=== PATIENT | male | born 1935 | race Caucasian/White ===

== ENCOUNTER 2017-07-01 07:42 | Emergency (ER) | payer OTHER ==
[2017-07-01 07:55] VITALS: TEMP 97.9; BMI 28.3
--- NOTE | 2017-07-01 08:01 | ED.PDOC ---
General ED Provider: Dr. YENIFER MURO Chief Complaint: Chest Pain Stated Complaint: My chest feels different, having chest palpitaions. Took morning meds around 6:00 AM. Stated discomfort localized mid -to Rt side of chest and denies referral to Neck, shoulder or abdomen. Denies Dyspnea, Dizziness or other discomfort. Time Seen by Physician: 07:45 Mode of Arrival: Walk-In Information Source: Patient, Family Exam Limitations: No limitations Primary Care Provider: YUNG STEWART Referred to ED by: Other (Self) Nursing and Triage Documentation Reviewed and Agree: Yes Reviewed sepsis parameters & appropriate labs ordered?: Yes System Inflammatory Response Syndrome: Not Applicable Sepsis Protocol: For patient's 13 years and over: Temp is 96.8 and below OR 101 and greater Pulse >90 BPM Resp >20/minute Acutely Altered Mental Status Are patient's symptoms suggestive of a new infection, such as: -Pneumonia -Skin, Soft Tissue -Endocarditis -UTI -Bone, Joint Infection -Implantable Device -Acute Abdominal Infection -Wound Infection -Meningitis -Blood Stream Catheter Infection -Unknown System Inflammatory Response Syndrome: Not Applicable Cardiovascular Complaint Exam - Chest Pain Complaint/Exam Onset: Sudden Symptoms Are: Still present Timing: Constant Initial Severity: Moderate Current Severity: Mild (10/22) Location: Reports: Midsternal, Right anterior Pain Radiates: Reports: None Character: Reports: Dull, Aching, Pressure Aggravating: Reports: None Alleviating: Reports: None Associated Signs and Symptoms: Reports: Palpitations. Denies: Diaphoresis, Nausea, Vomiting, Fever, Cough, Hemoptysis, Back pain, Abdominal pain, Dizziness , Short of air, Calf pain, Calf swelling Related History: Reports: Current Beta Ryan, Current Ca Rodriguez.Ryan. Denies : Similar episode Related Surgical History: Reports: Cardiac Cath. Denies: PTCA/Stent, CABG, Pacemaker History of Healthcare-Acquired Pneumonia: Reports: No AMI/ACS Risk Factors: Reports: Diabetes, Hypertension TAD Risk Factors: Reports: Hypertension Prior Care for this Complaint: Yes Recent Stress Test: No Recent Echo/LV Function: No JVD Present: No Subcutaneous Emphysema Present: No Diminshed Breath Sounds: No Reproducible Chest Wall Pain: No Bilateral Pulses Present: Yes Unequal Pulses Noted: No If Risk Factors for AMI/ACS Consider: EKG, Cardiac Enzymes Documents Reviewed: Labs, Imaging Software Support Representative Consulted: No Differential Diagnoses: ACS, Chest Wall Pain, Pulmonary Embolism, Other ( arrhythmia;) Quality Indicators For Acute CA or Cardiac Chest Pain: EKG in 10min. Review of Systems - Review Of Systems Constitutional: Reports: No symptoms Eyes: Reports: No symptoms Ears, Nose, Mouth, Throat: Reports: No symptoms Respiratory: Reports: No symptoms Cardiac: Reports: Chest pain, Palpitations GI: Reports: No symptoms : Reports: No symptoms Musculoskeletal: Reports: No symptoms Skin: Reports: No symptoms Neurological: Reports: No symptoms Endocrine: Reports: No symptoms Hematologic/Lymphatic: Reports: No symptoms All Other Systems: Reviewed and Negative Past Medical History - Past Medical History Previously Healthy: No Endocrine: Reports: None Cardiovascular: Reports: Hypertension, A-Fib, Other (Renal artery disease) Respiratory: Reports: None 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) Gastrointestinal: Reports: None Genitourinary: Reports: Other (Past Prostate Ca; Renal artery stenosis-prev recommended for stent placement) Neuro/Psych: Reports: None Musculoskeletal: Reports: None, Unknown 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; prostate Ca) - Surgical History General Surgical History: Reports: None - Family History Family History: Reports: None - Social History Smoking Status: Former smoker Hx Substance Use: No Physical Exam - Physical Exam Appearance: Well-appearing, No pain distress, Well-nourished Ill-appearing: None Pain Distress: None Eyes: RYAN, EOMI, Conjunctiva clear ENT: Ears normal, Nose normal, Oropharynx normal Respiratory: Airway patent, Breath sounds clear, Breath sounds equal, Respirations nonlabored Cardiovascular: Pulses normal, No rub, No murmur, Irregular rhythm GI/: Soft, Nontender, No masses, Bowel sounds normal, No Organomegaly Musculoskeletal: Normal strength, ROM intact, No edema, No calf tenderness Skin: Warm, Dry, Normal color Neurological: Sensation intact, Motor intact, Reflexes intact, Cranial nerves intact, Alert, Oriented Psychiatric: Affect appropriate, Mood appropriate Critical Care Note - Critical Care Note Total Time (mins): 30 Course - Course Hematology/Chemistry: 07/01/17 08:00 07/01/17 08:00 Orders, Labs, Meds: Lab Review 07/01/17 07/01/17 07/01/17 08:00 08:00 08:00 WBC 6.73 RBC 4.94 Hgb 14.1 Hct 42.6 MCV 86.2 MCH 28.5 MCHC 33.1 RDW Coeff of Maria 13.9 Plt Count 207 Immature Gran % (Auto) 0.3 Neut % (Auto) 65.6 Lymph % (Auto) 17.7 Bremer % (Auto) 10.1 H Eos % (Auto) 5.3 Baso % (Auto) 1.0 Immature Gran # (Auto) 0.0 Neut # (Auto) 4.4 Lymph # (Auto) 1.2 Bremer # (Auto) 0.7 Eos # (Auto) 0.4 Baso # (Auto) 0.1 PT INR APTT D-Dimer (Manual) 473.79 Sodium 138 Potassium 4.2 Chloride 102 Carbon Dioxide 26 Anion Gap 14.2 BUN 13 Creatinine 0.93 Estimated GFR (MDRD) 78.00 BUN/Creatinine Ratio 13.97 Glucose 216 H Calcium 9.5 Total Bilirubin 0.6 AST 15 ALT 16 Alkaline Phosphatase 72 Troponin I < 0.0100 Total Protein 7.1 Albumin 3.7 Globulin 3.4 Albumin/Globulin Ratio 1.09 Digoxin 07/01/17 07/01/17 08:00 08:00 WBC RBC Hgb Hct MCV MCH MCHC RDW Coeff of Maria Plt Count Immature Gran % (Auto) Neut % (Auto) Lymph % (Auto) Bremer % (Auto) Eos % (Auto) Baso % (Auto) Immature Gran # (Auto) Neut # (Auto) Lymph # (Auto) Bremer # (Auto) Eos # (Auto) Baso # (Auto) PT 38.5 H INR 4.01 H* APTT 38.6 D-Dimer (Manual) Sodium Potassium Chloride Carbon Dioxide Anion Gap BUN Creatinine Estimated GFR (MDRD) BUN/Creatinine Ratio Glucose Calcium Total Bilirubin AST ALT Alkaline Phosphatase Troponin I Total Protein Albumin Globulin Albumin/Globulin Ratio Digoxin 1.48 Orders Category Date Time Status EKG-(ED ONLY) Stat CARDIO 07/01/17 07:45 Completed IV [ED IV/MEDIPORT/POWERPORT] .ONCE EMERGENCY 07/01/17 07:45 Active CBC W/ AUTO DIFF Stat LAB 07/01/17 08:00 Completed CMP [COMPREHENSIVE METABOLIC PANEL] Stat LAB 07/01/17 08:00 Completed D-DIMER Stat LAB 07/01/17 08:00 Completed DIGOXIN Stat LAB 07/01/17 08:00 Completed PT WITH INR Stat LAB 07/01/17 08:00 Completed PTT [PARTIAL THROMBOPLASTIN TIME] Stat LAB 07/01/17 08:00 Completed TROPONIN I Stat LAB 07/01/17 08:00 Completed 0.9 % Sodium Chloride [Saline Flush] MEDS 07/01/17 07:45 Active 1 syr IVF PRN PRN CHEST, 1V AP ONLY Stat RADS 07/01/17 07:45 Completed Medications Generic Name Dose Route Start Last Admin Trade Name Freq PRN Reason Stop Dose Admin Sodium Chloride 1 syr 07/01/17 07:45 Saline Flush IVF PRN PRN To flush IV Vital Signs: Temp Pulse Resp BP Pulse Ox 07/01/17 08:38 69 16 176/86 H 07/01/17 07:43 97.9 F 89 18 203/114 H 98 AMI Core - Clinical Trial Participant Clinical Trial Participant: No - EKG Initial Interpretation EKG Initial Interpretation Date: 07/01/17 (Atrial fib ; LAFB; NS-ST changes) ERIKA Risk Score ERIKA Risk Score: Risk Score Odds of by 30D 0 0.1 (0.1-0.2) 1 0.3 (0.2-0.3) 2 0.4 (0.3-0.5) 3 0.7 (0.6-0.9) 4 1.2 (1.0-1.5) 5 2.2 (1.9-2.6) 6 3.0 (2.5-3.6) 7 4.8 (3.8-6.1) Departure - Departure Time of Disposition: 09:50 Disposition: TSF SHORT-TRM HOSP Discharge Problem: Chest pain, Chest pain, Atrial fibrillation, Uncontrolled hypertension, History of renal artery stenosis Instructions: Chest Pain (ED), Chronic Hypertension (ED), Hypertension in the Older Adult (ED) Condition: Good Pt referred to PMD for follow-up: Yes (Dr Stewart-discussed with PCP who agrees to accept in transfer) IPMP verified?: No Allergies/Adverse Reactions: Allergies No Known Allergies Allergy (Unverified 07/01/17 07:54) Home Medications: Ambulatory Orders Cinnamon Bark [Cinnamon] 1,000 mg PO DAILY 07/01/17 Digoxin 250 mcg PO DAILY 07/01/17 Diltiazem HCl [Cardizem Cd] 240 mg PO DAILY 04/19/18 Lisinopril/Hydrochlorothiazide [Zestoretic 20-12.5 mg Tab] 1 tab PO DAILY Metformin HCl 850 mg PO BID 07/01/17 Metoprolol Tartrate 50 mg PO DAILY 07/01/17 Omeprazole 20 mg PO DAILY 07/01/17 Sitagliptin Phosphate [Januvia] 100 mg PO DAILY 07/01/17 Warfarin Sodium 3 mg PO DIRECTED 07/01/17 Additional Comments Additional Comments: Reviewed diagnostic studies with patient and his family( and daughter). Recommeded transfer to [facility] where His PCP practices for admission and observation/further evaluation as required. Agreed. Called and spoke with Dr Stewart who accepts patient. Nursing make arrangment admissiion through call center. Transferred by [facility]
[2017-07-01 08:39] VITALS: BP 176/86
--- NOTE | 2017-07-01 09:18 | DI ---
EXAM: Chest one view HISTORY: Chest pain COMPARISON: None TECHNIQUE: Single view of the chest was performed FINDINGS: The lungs are clear. There is no pleural effusion or pneumothorax. The heart is normal i n size. The mediastinal contour is normal, noting atherosclerosis. There are no acute abnormalities of the bones. IMPRESSION: No acute cardiopulmonary process.
== END 2017-07-01 11:30 | disposition short-term general hospital (02) ==
LOC: ED 07:42
DX: R07.9 Chest pain, unspecified (principal); I48.91 Unspecified atrial fibrillation; I10 Essential (primary) hypertension; I70.1 Atherosclerosis of renal artery; E11.9 Type 2 diabetes mellitus without complications; Z85.46 Personal history of malignant neoplasm of prostate; Z85.821 Personal history of Merkel cell carcinoma; Z79.01 Long term (current) use of anticoagulants; Z79.899 Other long term (current) drug therapy
CPT/HCPCS: 36415; 80053; 80162; 84484; 85025; 85379; 85610; 85730; 93005; 93010; 99285

== ENCOUNTER 2017-08-12 08:24 | Outpatient (RCR) ==
--- NOTE | 2017-08-12 16:53 | RS.OPPTEV2 ---
Date of Note: 08/12/17 Visit #: 1 Date of Evaluation: 08/12/17 Payer Source: MEDICARE Surgery Performed?: Yes (CABG) Procedure Performed: CABG Date of Procedure: 06/29/17 Treatment Diagnosis: L shld pain History of Condition/Mechanism of Injury:: pt reports he has had pain in L scapula since CABG on 06/29/17. States pain is limiting ability to walk and perform cardiac rehab activities as ordered by MD. Prior Level of Function.....Patient was independent with: ADL's, Self Care, Ambulation/Mobility, Community Integration/Access Functional Limitations: Sleep, Lifting, Ambulation, Community Access/Integration Current Subjective/complaints:: pt reports pain comes and goes. States notices increased pain with walking and being up very long. pt reports is returning to cardiac surgeon next week and will be starting cardiac rehab soon. Hoping to decrease scapular pain prior to beginning cardiac rehab. Treatment Side (optional): Left *Precautions: no lifting due to CABG Medical History Medical History: Hypertension, Diabetes, Arthritis, Cancer (prostate and bret cell) Surgical History: CABG Smoking Status: Current some day smoker Hx Home Medications: diltazem, metoprolol tartrate, digoxin, warfarin, lisinopril with HCTZ, januvia, metformin, omeprazole, cinnamon, Patient's Goals: decrease scapular pain Pain Assessment - Pain Description Pain Location: L medial border of scapula Pain Description: Sharp Current Pain Intensity: 10 Worst Pain Intensity: 10 Other Comments regarding Pain:: pain increases with activity Functional Outcome Measure UE Functional Index: 18 (77%) - G Codes & Severity Modifier G Codes & Modifier: carrying, moving and handling current CL. carrying, moving and handling goal CJ Source of G Code score: UE functional index Observation - Observation Posture: Forward Head, Rounded Shoulders, Increased Thoracic Kyphosis, Decreased Lumbar Lordosis Handedness: Right Gait - Gait Pattern General Gait Pattern Observation: No Deviations/Normal General Range of Motion: BLE WFL's. RUE WFL's Muscle Strength: BLE 5/5. RUE not MMT due to CABG atleast 3/5 as noted by ROM Shoulder ROM: Right WFL's - Left Shoulder ROM Left Shoulder Flexion: 164 Left Shoulder Abduction: 160 Left Shoulder External Rotation: 55 Left Shoulder ROM Limitations: Muscle Weakness, Pain Comments: ROM WFL's with pain, decreased scapular motion with shld movement - Special Tests Shoulder Empty Can (Supraspinatus) Test: Positive Left Palpation Palpation Findings: Trigger Point Comments:: pt presents with trigger point and muscle guarding in medial border of L scapula. Sensation - Sensation Right Upper Extremity: Intact/Normal Left Upper Extremity: Intact/Normal Right Lower Extremity: Intact/Normal Left Lower Extremity: Intact/Normal Balance - Sitting Balance Static Sitting Balance: Normal Dynamic Sitting Balance: Normal - Standing Balance Static Standing Balance: Normal Dynamic Standing Balance: Normal - Heat/Cryotherapy Treatment: Cryotherapy (L scapula/shld) Interventions - Exercise/Activities/Manual Therapy Exercises/Activities: pt performed scapular retraction, shld shrugs, modified wall angels, shld horizontal add stretch. Manual Therapy: trigger point release to L medial border of scapula HOME EXERCISE PROGRAM: pt given written HEP including shld horizontal add stretch, scapular retraction without resistance, shld shrugs, modified wall angels. - Charges Timed Code Treatment Minutes: 51 Total Treatment Time: 60 Procedures billed for this date of service:: eval med, cold pack EVALUATION COMPLEXITY LEVEL EVALUATION COMPLEXITY LEVEL: HISTORY: Medium (CABG, DM, CA, pain), EXAM OF BODY SYSTEMS: Medium (pain, ROM, strength, posture), CLINICAL PRESENTATION: Medium ( evolving), CLINICAL DECISION MAKING: Medium Assessment Assessment: pt presents with pain L medial scapula, trigger points and muscle guarding present. pt with increased thoracic kyphosis, pt with decreased strength. 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 Goal #1: report ability to perform daily activities/amb for ex w/o increased pain Goal to be met by: 09/09/17 Goal #2: pt perform ROM WFL's without increased pain Goal to be met by: 09/09/17 Goal #3: pt independent with HEP to maintain gains after dc Goal to be met by: 09/09/17 Plan - Treatment to be Provided Procedures: Therapeutic Exercises, Therapeutic Activity, Manual Therapy, Massage , Patient Education Modalities: Cryotherapy, Hot Packs - Treatment Plan Frequency: 2-3x a week Duration: 4 weeks ORDER # VISITS AND/OR THROUGH DATE: 09/09/17 - Treatment Code (1) Pain of left scapula Code(s): M89.8X1 - OTHER SPECIFIED DISORDERS OF BONE, SHOULDER (2) Muscle tightness Code(s): M62.89 - OTHER SPECIFIED DISORDERS OF MUSCLE (3) Muscle weakness Code(s): M62.81 - MUSCLE WEAKNESS (GENERALIZED)
== END 2017-08-12 23:59 ==
PROVIDERS: ATTEND Family Medicine
DX: M25.512 Pain in left shoulder (principal)

== ENCOUNTER 2017-08-20 09:00 | Outpatient (RCR) ==
--- NOTE | 2017-08-16 09:42 | RS.OPPTDN ---
Subjective Date of Note: 08/16/17 Visit #: 2 Date of Evaluation: 08/12/17 Payer Source: MEDICARE Treatment Diagnosis: L shld pain Current Subjective/complaints:: Patient reports his niece did some manual therapy on his left shoulder area which seems to have helped, and he feels we are on the right track to relieving his problem. States he will see his cardiac surgeon tomorrow and should be starting cardiac rehab next week. Reports reduction in left shoulder/scapular pain following treatment. *Precautions: no lifting due to CABG Pain Assessment - Pain Description Pain Location: Left mid scapular musculature Current Pain Intensity: mild to mod - Heat/Cryotherapy Treatment: Hot Pack ([id number] to the left shoulder and scapula prior to MT. Patient in sitting. ) Interventions - Exercise/Activities/Manual Therapy Exercises/Activities: pt performed scapular retraction and shld shrugs. Assisted mid scap stretch with UE across body/shld horizontal add stretch. Total minutes of Exercise: 3mins Manual Therapy: Myofascial and soft tissue massage to the left scapular region. Trigger point release to the left medial scap border. Ended with soft tissue massage to bilateral upper traps. Patient in sitting. Total minutes of Manual Therapy: 24mins HOME EXERCISE PROGRAM: pt given written HEP including shld horizontal add stretch, scapular retraction without resistance, shld shrugs, modified wall angels. - Objective Findings Observations,measurements,etc.: Patient with increase muscle tone along the left med scap border, reduced muscle spasms and latent trigger points. - Charges Timed Code Treatment Minutes: 27mins Total Treatment Time: 47mins Procedures billed for this date of service:: HP, MT2 Assessment: Patient reponding well to manual therapy with report of reduction in pain and muscle tension. Patient motivated to progress with return to cardiac rehab. Patient Education: Body/Joint mechanics, Home Exercise Program, Activity Modification Patient demonstrates compliance with HEP?: Yes Short Term Goals Goal #1: pt rate pain < 8 with activity Goal to be met by: 08/26/17 Progress towards Goal:: Progressing Goal #2: pt able to perform L shld ROM with decreased pain Goal to be met by: 08/26/17 Progress towards Goal:: Progressing Goal #3: pt independent with intial HEP Progress towards Goal:: Progressing Snf Goals Goal #1: report ability to perform daily activities/amb for ex w/o increased pain Goal to be met by: 09/09/17 Goal #2: pt perform ROM WFL's without increased pain Goal to be met by: 09/09/17 Goal #3: pt independent with HEP to maintain gains after dc Goal to be met by: 09/09/17 Plan PLAN OF CARE EXPIRES ON:: 09/09/17 ORDER # VISITS AND/OR THROUGH DATE: 09/09/17 PLAN: Continue manual therapy to reduce pain and muscle tension to increase patients functional activity level.
--- NOTE | 2017-08-18 12:00 | RS.OPPTDN ---
Subjective Date of Note: 08/18/17 Visit #: 3 Date of Evaluation: 08/12/17 Payer Source: MEDICARE Treatment Diagnosis: L shld pain Current Subjective/complaints:: Patient reports last treatment helped reduce pain. States he is working on basic stretches. *Precautions: no lifting due to CABG Pain Assessment - Pain Description Pain Location: Left mid scapula Pain Description: Tightness Current Pain Intensity: mild - Heat/Cryotherapy Treatment: Hot Pack ([id number] to the left shoulder and scapular region. Patient in sitting. ) Interventions - Exercise/Activities/Manual Therapy Exercises/Activities: pt performed scapular retraction and shld shrugs. Assisted mid scap stretch with UE across body/shld horizontal add stretch. Total minutes of Exercise: 2mins Manual Therapy: Myofascial and soft tissue massage to the left scapular region. Trigger point release to the left medial scap border. Ended with soft tissue massage to bilateral upper and mid traps. Patient in sitting. Total minutes of Manual Therapy: 27mins HOME EXERCISE PROGRAM: pt given written HEP including shld horizontal add stretch, scapular retraction without resistance, shld shrugs, modified wall angels. - Objective Findings Observations,measurements,etc.: Left mid scap muslce tone reduced today. - Charges Timed Code Treatment Minutes: 29mins Total Treatment Time: 49mins Procedures billed for this date of service:: HP, MT2 Assessment: Patinet responding to treatment with reports of pain reduction and decrease in left mid scap muscle spasm. 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
--- NOTE | 2017-08-20 16:20 | RS.OPPTDN ---
Subjective Date of Note: 08/20/17 Visit #: 4 Date of Evaluation: 08/12/17 Payer Source: MEDICARE Treatment Diagnosis: L shld pain Current Subjective/complaints:: Patient reports manual therapy is helping his pain level. He does report some increase in discomfort after increasing his activity yesterday. Reports he is working on HEP. *Precautions: no lifting due to CABG Pain Assessment - Pain Description Pain Location: left medial scapular border Pain Description: Tightness, Aching Current Pain Intensity: mild to mod - Heat/Cryotherapy Treatment: Hot Pack ([id number] to the left shoulder and scap prior to MT. Patient in sitting. ) Interventions - Exercise/Activities/Manual Therapy Exercises/Activities: pt performed scapular retraction and shld shrugs. Assisted mid scap stretch with UE across body/shld horizontal add stretch. Began red theraband for scap retraction, 2s/10reps. Also, isometric cervical retraction. Patient given copy of new exercises. Total minutes of Exercise: 10mins Manual Therapy: Myofascial and soft tissue massage to the left scapular region. Trigger point release to the left medial scap border. Soft tissue massage to bilateral upper and mid traps. Patient in sitting. Total minutes of Manual Therapy: 29mins HOME EXERCISE PROGRAM: pt given written HEP including shld horizontal add stretch, scapular retraction without resistance, shld shrugs, modified wall angels. - Charges Timed Code Treatment Minutes: 39mins Total Treatment Time: 54mins Procedures billed for this date of service:: HP, MTx2, EX Assessment: Patient reporting improvement in pain and increasing daily activities. 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
--- NOTE | 2017-08-24 11:28 | RS.OPPTDC ---
Date of Discharge: 08/20/17 Date of Evaluation: 08/12/17 Number of Visits: 4 Treatment Diagnosis: L shld pain Current Level of Function: pt with Muscle tone decreased to min L med scapular border, L shld flex WFL's. pt is independent with HEP. pt has met 2/3 STG's. Current Complaints/Gains: pt reports significant improvement in L scapular pain and muscle spasm. States he has returned to work partial days and increased light ADL's at home. Working on HEP. pt decided he is doing well and would like to stop PT and begin cardiac rehab this week. Functional Outcome Measure UE Functional Index: 36 - G Codes & Severity Modifier G Codes & Modifier: carrying moving and handling objects goal CJ. carrying moving and handling objects dc CK Source of G Code score: based on discussion of function/ADL's Observation - Observation Posture: Forward Head, Rounded Shoulders Handedness: Right Gait - Gait Pattern General Gait Pattern Observation: No Deviations/Normal General Range of Motion: WFL's Muscle Strength: Improved from eval to be able to perform light ADL's Interventions - Exercise/Activities/Manual Therapy Exercises/Activities: n/a Manual Therapy: n/a HOME EXERCISE PROGRAM: pt given written HEP including shld horizontal add stretch, scapular retraction without resistance, shld shrugs, modified wall angels. - Charges Timed Code Treatment Minutes: n/a Total Treatment Time: n/a Procedures billed for this date of service:: n/a Assessment Assessment: pt has met 2/3 STG's , pt progressing toward remaining goals. pt chooses to stop PT and begin cardiac rehab. Patient Education: Home Exercise Program, Education of Plan of Care Rehab Potential: Good Short Term Goals Goal #1: pt rate pain < 8 with activity Goal to be met by: 08/26/17 Progress towards Goal:: Met Goal #2: pt able to perform L shld ROM with decreased pain Goal to be met by: 08/26/17 Progress towards Goal:: Partially Met Goal #3: pt independent with intial HEP Progress towards Goal:: Met Custodial Goals Goal #1: report ability to perform daily activities/amb for ex w/o increased pain Goal to be met by: 09/09/17 Progress towards goal: Progressing Goal #2: pt perform ROM WFL's without increased pain Goal to be met by: 09/09/17 Progress towards goal: Progressing Goal #3: pt independent with HEP to maintain gains after dc Goal to be met by: 09/09/17 Plan Reason for Discharge:: Self-Discharge
[2017-08-26 15:20] VITALS: BMI 24.6
== END 2017-09-11 23:59 ==
PROVIDERS: ATTEND Family Medicine
DX: M25.512 Pain in left shoulder (principal); M89.8X1 Other specified disorders of bone, shoulder; M62.89 Other specified disorders of muscle; M62.81 Muscle weakness (generalized)

== ENCOUNTER 2017-08-26 13:54 | Outpatient (RCR) ==
[2017-08-26 15:20] VITALS: TEMP 98.1; BMI 24.6
[2017-09-10 10:53] VITALS: BP 118/54
== END 2017-09-11 23:59 ==
LOC: CAR.REHAB 13:54
PROVIDERS: ATTEND Nurse Practitioner Acute Care
DX: I25.119 Atherosclerotic heart disease of native coronary artery with unspecified angina pectoris (principal)
CPT/HCPCS: 93798

== ENCOUNTER 2017-09-13 06:55 | Outpatient (RCR) ==
[2017-10-11 11:14] VITALS: BP 116/54
== END 2017-10-12 23:59 ==
LOC: CAR.REHAB 06:55
PROVIDERS: ATTEND Nurse Practitioner Acute Care
DX: I25.119 Atherosclerotic heart disease of native coronary artery with unspecified angina pectoris (principal)
CPT/HCPCS: 93798

== ENCOUNTER 2017-10-13 06:43 | Outpatient (RCR) ==
[2017-11-10 10:44] VITALS: BP 118/56
== END 2017-11-12 23:59 ==
LOC: CAR.REHAB 06:43
PROVIDERS: ATTEND Nurse Practitioner Acute Care
DX: I25.119 Atherosclerotic heart disease of native coronary artery with unspecified angina pectoris (principal)
CPT/HCPCS: 93798

== ENCOUNTER 2017-11-16 07:50 | Outpatient (RCR) | payer OTHER ==
[2017-12-10 09:00] VITALS: BP 132/58
== END 2017-12-12 23:59 ==
LOC: CAR.REHAB 07:50
PROVIDERS: ATTEND Nurse Practitioner Acute Care
DX: I25.119 Atherosclerotic heart disease of native coronary artery with unspecified angina pectoris (principal)
CPT/HCPCS: 93798

== ENCOUNTER 2017-12-13 06:47 | Outpatient (RCR) ==
[2018-01-11 10:11] VITALS: BP 118/58
== END 2018-01-12 23:59 ==
LOC: CAR.REHAB 06:47
PROVIDERS: ATTEND Nurse Practitioner Acute Care
DX: I25.119 Atherosclerotic heart disease of native coronary artery with unspecified angina pectoris (principal)
CPT/HCPCS: 93798

== ENCOUNTER 2018-02-14 06:50 | Outpatient (RCR) ==
[2018-03-11 08:46] VITALS: BP 110/54
== END 2018-03-14 23:59 ==
LOC: CAR.REHAB 06:50
PROVIDERS: ATTEND Nurse Practitioner Acute Care
DX: I25.119 Atherosclerotic heart disease of native coronary artery with unspecified angina pectoris (principal)
CPT/HCPCS: 93798

== ENCOUNTER 2018-03-16 06:38 | Outpatient (RCR) ==
[2018-03-21 08:57] VITALS: BP 116/60
== END 2018-03-21 12:30 | disposition home or self-care (01) ==
LOC: CAR.REHAB 06:38
PROVIDERS: ATTEND Nurse Practitioner Acute Care
DX: I25.119 Atherosclerotic heart disease of native coronary artery with unspecified angina pectoris (principal)
CPT/HCPCS: 93798

== ENCOUNTER 2018-04-02 04:22 | Outpatient (CLI) | END 2018-04-03 04:58 | disposition short-term general hospital (02) | LOC: AMBL 04:22 | PROVIDERS: ATTEND Emergency Medicine | DX: R06.02 Shortness of breath (principal); I48.91 Unspecified atrial fibrillation; Z96.89 Presence of other specified functional implants ==

== ENCOUNTER 2020-10-24 21:53 | Inpatient (IN) ==
[2020-10-24 22:51] VITALS: BP 198/77; BMI 24.7
[2020-10-25] MEDS ORDERED: LACTATED RINGERS 1,000 ML IV STA (00:31)
[2020-10-25] MEDS ORDERED: ZOFRAN 4 MG/2 ML IVP STA ×2 (00:31→04:55)
[2020-10-25] MEDS ORDERED: DILAUDID 1 MG/ML SYRINGE IVP STA (00:31)
--- NOTE | 2020-10-25 00:47 | ED.PDOC ---
General ED Provider: Dr. AMY MEZA Chief Complaint: Abdominal Pain Stated Complaint: Patient is an 85 year old with diffuse abdominal pain that stared today. Has a history of Augustus cell carcinoma and Prostate cancer and has been on chemotherapy. He states that his abdominal pain got worse tonight. Did eat lunch and dinner tonight. Has not been able to vomit. Time Seen by Provider: 10/25/20 00:31 Mode of Arrival: Walk-In Information Source: Patient Primary Care Provider: YUNG LYNCH Nursing and Triage Documentation Reviewed and Agree: Yes Does patient meet sepsis criteria?: No System Inflammatory Response Syndrome: Not Applicable Sepsis Protocol: For patient's 13 years and over: Temp is 96.8 and below OR 101 and greater Pulse >90 BPM Resp >20/minute Acutely Altered Mental Status Are patient's symptoms suggestive of a new infection, such as: -Pneumonia -Skin, Soft Tissue -Endocarditis -UTI -Bone, Joint Infection -Implantable Device -Acute Abdominal Infection -Wound Infection -Meningitis -Blood Stream Catheter Infection -Unknown GI Complaint Exam Abdominal Pain Complaint/Exam Onset: Gradual Duration: 1 day Symptoms Are: Still present Timing: Constant Initial Severity: Moderate Current Severity: Severe Location of Pain: Diffuse Radiates To: Reports RLQ Character: Reports Dull and Aching Alleviating: Reports None Associated Signs and Symptoms: Reports Constipation; Denies Diaphoresis, Fever, Cough, Chest pain, Dizziness, Back pain, Blood in stool, Dysuria, Urinary frequency, Decreased urine output, Decreased appetite, Discharge, Nausea, Vomiting, Diarrhea or Decreased activity AAA Risk Factors: Reports None Cardiac Risk Factors: Reports None Testicular Torsion Risk Factors: Reports None Surgical Obstruction Risk Factors: Reports None Abdominal Findings: Present Abdominal distention and McBurney's Point tender Differential Diagnoses: Appendicitis, Bowel Obstruction, Constipation, Pancreatitis and UTI Review of Systems Review Of Systems Constitutional: Reports No symptoms Eyes: Reports No symptoms Ears, Nose, Mouth, Throat: Reports No symptoms Respiratory: Reports No symptoms Cardiac: Reports No symptoms GI: Reports Abdomen distended, Abdominal pain and Constipated Skin: Reports No symptoms Neurological: Reports Anxiety Endocrine: Reports No symptoms All Other Systems: Reviewed and Negative [facility] Social History Smoking and tobacco status: Current some day smoker Physical Exam Physical Exam Appearance: Reports Ill-appearing Ill-appearing: Mild Pain Distress: Severe Eyes: Reports RYAN, EOMI and Conjunctiva clear ENT: Reports Ears normal, Nose normal and Oropharynx normal Neck: Supple Respiratory: Reports Airway patent, Breath sounds clear, Breath sounds equal and Respirations nonlabored Cardiovascular: Reports RRR, Pulses normal, No rub and No murmur GI/: Reports Bowel sounds normal and Tender Musculoskeletal: Reports Normal strength, ROM intact, No edema and No calf tenderness Skin: Reports Warm, Dry and Normal color Neurological: Reports Sensation intact, Motor intact, Reflexes intact, Cranial nerves intact, Alert and Oriented Psychiatric: Reports Affect appropriate and Mood appropriate Interpretation Radiology Interpretation Radiology Interpretation By: Radiologist Radiology Results: Positive Exam Interpreted: CT Scan (cannot rule out obstruction) Critical Care Note Critical Care Note Total Critical Care Time (mins): 30 Comments: Discussed with patient that there is a possible partial bowel obstruction but was not entirely clear Agrees to be admitted her as there are not beds in [place] Course Course Hematology/Chemistry: 10/25/20 00:31 10/25/20 00:31 Orders, Labs, Meds: Lab Review 10/25/20 10/25/20 10/25/20 00:31 00:31 00:42 WBC 9.93 RBC 4.53 L Hgb 13.1 L Hct 40.6 L MCV 89.6 MCH 28.9 MCHC 32.3 RDW Coeff of Maria 17.4 H Plt Count 198 Immature Gran % (Auto) 0.2 Neut % (Auto) 88.3 H Lymph % (Auto) 5.0 L [place] % (Auto) 5.7 Eos % (Auto) 0.6 Baso % (Auto) 0.2 Neut # (Auto) 8.8 H Lymph # (Auto) 0.5 L [place] # (Auto) 0.6 Eos # (Auto) 0.1 Baso # (Auto) 0.0 Immature Gran # (Auto) 0.0 PT INR Sodium 133.2 L Potassium 4.34 Chloride 96.3 L Carbon Dioxide 25.3 Anion Gap 15.94 BUN 26.6 H Creatinine 1.57 H Estimated GFR (MDRD) 42.00 BUN/Creatinine Ratio 16.94 Glucose 193.3 H Calcium 9.37 Total Bilirubin 0.97 AST 25.9 ALT 17.4 Alkaline Phosphatase 122.7 H Total Protein 8.19 Albumin 4.89 Globulin 3.30 Albumin/Globulin Ratio 1.48 Amylase 55.5 Lipase 31.5 Urine Color Yellow Urine Clarity Clear Urine pH 5.0 Ur Specific Pearce 1.015 Urine Protein 2+ H Urine Glucose (UA) Negative Urine Ketones 1+ H Urine Blood Trace-intact H Urine Nitrite Negative Urine Bilirubin Negative Urine Urobilinogen 0.2 Ur Leukocyte Esterase Negative Urine Microscopic RBC 5-10 Urine Microscopic WBC 5-10 Ur Squamous Epith Cells Not present Urine Bacteria 1+ Hyaline Casts 10-20 Urine Mucus 1+ 10/25/20 00:56 WBC RBC Hgb Hct MCV MCH MCHC RDW Coeff of Maria Plt Count Immature Gran % (Auto) Neut % (Auto) Lymph % (Auto) [place] % (Auto) Eos % (Auto) Baso % (Auto) Neut # (Auto) Lymph # (Auto) [place] # (Auto) Eos # (Auto) Baso # (Auto) Immature Gran # (Auto) PT 11.0 INR 1.04 Sodium Potassium Chloride Carbon Dioxide Anion Gap BUN Creatinine Estimated GFR (MDRD) BUN/Creatinine Ratio Glucose Calcium Total Bilirubin AST ALT Alkaline Phosphatase Total Protein Albumin Globulin Albumin/Globulin Ratio Amylase Lipase Urine Color Urine Clarity Urine pH Ur Specific Pearce Urine Protein Urine Glucose (UA) Urine Ketones Urine Blood Urine Nitrite Urine Bilirubin Urine Urobilinogen Ur Leukocyte Esterase Urine Microscopic RBC Urine Microscopic WBC Ur Squamous Epith Cells Urine Bacteria Hyaline Casts Urine Mucus Orders Category Date Time Status ED IV/MEDIPORT/POWERPORT .ONCE EMERGENCY 10/25/20 00:31 Active AMYLASE Stat LAB 10/25/20 00:31 Completed CBC W/ AUTO DIFF Stat LAB 10/25/20 00:31 Completed COMPREHENSIVE METABOLIC PANEL Stat LAB 10/25/20 00:31 Completed LIPASE Stat LAB 10/25/20 00:31 Completed PT WITH INR Stat LAB 10/25/20 00:56 Completed URINALYSIS C & S IF INDICATED Stat LAB 10/25/20 00:42 Completed URINE CULTURE Stat LAB 10/25/20 00:42 Received 0.9 % Sodium Chloride [Saline Flush] MEDS 10/25/20 00:31 Active 1 syr IVF PRN PRN Hydromorphone HCl [Dilaudid 1 mg/ml Syringe] MEDS 10/25/20 00:31 Discontinued 1 mg IVP ONCE STA Ondansetron HCl/Pf [Zofran 4 mg/2 ml] MEDS 10/25/20 00:31 Discontinued 4 mg IVP ONCE STA Ringers Lactated Solution [Lactated Ringers] 1,000 ml MEDS 10/25/20 00:[address] ABD/PEL WO RENAL STONE PROT Stat RADS 10/25/20 00:31 Completed Medications Generic Name Dose Route Start Last Admin Trade Name Freq PRN Reason Stop Dose Admin Sodium Chloride 1 syr 10/25/20 00:31 0.9% Sodium Chloride 10 Ml Disp.Syrin IVF PRN PRN To flush IV Discontinued Medications Generic Name Dose Route Start Last Admin Trade Name Freq PRN Reason Stop Dose Admin Hydromorphone HCl 1 mg 10/25/20 00:31 10/25/20 01:02 Hydromorphone Hcl 1 Mg/Ml Syringe IVP 10/25/20 00:32 1 mg ONCE STA Administration Lactated Ringer's 1,000 mls @ 1,000 mls/hr 10/25/20 00:31 10/25/20 01:03 Lactated Ringers IV 10/25/20 01:30 1,000 mls/hr BOLUS STA Administration Ondansetron HCl 4 mg 10/25/20 00:31 10/25/20 01:02 Ondansetron Hcl/Pf 4 Mg/2 Ml Sdv IVP 10/25/20 00:32 4 mg ONCE STA Administration Vital Signs: Temp Pulse Resp BP Pulse Ox 10/24/20 22:38 97.5 F L 65 18 198/77 H 95 Discharge Plan Discharge Patient Disposition: ADMITTED INPATIENT Discharge Problem: Partial small bowel obstruction, Abdominal pain Prescriptions: No Action lisinopril-hydrochlorothiazide 1 TAB tablet 1 tab PO DAILY RF: 0 diltiazem HCl [Cardizem CD] 240 MG capsule,extended release 24hr 240 mg PO DAILY RF: 0 metformin 850 MG tablet 850 mg PO BID RF: 0 digoxin 250 MCG tablet 250 mcg PO DAILY RF: 0 warfarin 3 MG tablet 3 mg PO DIRECTED RF: 0 omeprazole 20 MG capsule,delayed release(DR/EC) 20 mg PO DAILY RF: 0 cinnamon bark 500 MG capsule 1,000 mg PO DAILY RF: 0 sitagliptin [Januvia] 100 MG tablet 100 mg PO DAILY RF: 0 metoprolol tartrate 100 MG tablet 50 mg PO DAILY RF: 0 ED Provider: AMY MEZA Condition: Fair Physician Progress Note: []
[2020-10-25 00:48] LABS: BASOPHILS % (AUTO) 0.2 % (0.0-3.0); EOSINOPHILS # (AUTO) 0.1 K/ul (0.0-0.7); EOSINOPHILS % (AUTO) 0.6 % (0.0-7.0); HEMATOCRIT 40.6 % (42.0-52.0); HEMOGLOBIN 13.1 g/dl (14.0-18.0); IMMATURE GRANULOCYTE % (AUTO) 0.2 % (0.0-5.0); LYMPHOCYTES # (AUTO) 0.5 K/uL (0.60-3.4); MEAN CORPUSCULAR HEMOGLOBIN 28.9 pg (27.0-31.0); MEAN CORPUSCULAR HGB CONC 32.3 (31.8-35.4); MEAN CORPUSCULAR VOLUME 89.6 fl (80.0-94.0); MONOCYTES # (AUTO) 0.6 K/uL (0.4-2.0); MONOCYTES % (AUTO) 5.7 (0-10); NEUTROPHILS # (AUTO) 8.8 K/ul (2.0-6.9); NEUTROPHILS % (AUTO) 88.3 % (42.2-75.2); PLATELET COUNT 198 10^3/uL (140-440); RDW COEFFICIENT OF VARIATION 17.4 % (11.6-14.8); RED BLOOD COUNT 4.53 10^6/ul (4.70-6.10); WHITE BLOOD COUNT 9.93 K/ul (4.2-10.2)
[2020-10-25 01:01] LABS: BILIRUBIN,URINE Negative (NEGATIVE); CLARITY,URINE Clear (CLEAR); COLOR,URINE Yellow (YELLOW); GLUCOSE, URINE (UA) Negative (NEGATIVE); KETONES,URINE 1+ (NEGATIVE); LEUKOCYTE ESTERASE ,URINE Negative (NEGATIVE); NITRITE,URINE Negative (NEGATIVE); PROTEIN,URINE 2+ (NEGATIVE); URINE, BLOOD Trace-intact (NEGATIVE); UROBILINOGEN,URINE 0.2 (0.2)
[2020-10-25 01:01] LABS: ALANINE AMINOTRANSFERASE 17.4 U/L (0-50); ALBUMIN 4.89 g/dL (3.5-5.0); ALKALINE PHOSPHATASE 122.7 U/L (56-119); AMYLASE 55.5 U/L (30-110); ASPARTATE AMINO TRANSFERASE 25.9 U/L (17-59); BILIRUBIN,TOTAL 0.97 mg/dL (0.2-1.3); BLOOD UREA NITROGEN 26.6 mg/dL (9-20); CALCIUM 9.37 mg/dL (8.4-10.2); CARBON DIOXIDE 25.3 mmol/L (22-30.0); CHLORIDE 96.3 mmol/L (98-107); CREATININE 1.57 mg/dL (0.60-1.10); GLUCOSE 193.3 mg/dL (74-106); LIPASE 31.5 U/L (23-300); POTASSIUM 4.34 mmol/L (3.5-5.1); SODIUM 133.2 mmol/L (134.5-145); TOTAL PROTEIN 8.19 g/dL (6.3-8.2)
[2020-10-25 01:02] LABS: SQUAMOUS EPITHELIAL CELL,UR NOT PRESENT (0-5)
[2020-10-25 01:27] LABS: BACTERIA,URINE 1+ (NOT PRESENT); MUCUS,URINE 1+ (NOT PRESENT)
--- NOTE | 2020-10-25 01:52 | CT ---
EXAM: CT of the abdomen and pelvis without contrast. HISTORY: Abdominal pain. PROCEDURE: Contiguous axial CT images of the abdomen and pelvis without contrast with coronal and sa gittal reformats. All CT scans are performed using dose optimization techniques as appropriate to a performed exam including the following: Automated exposure control, Adjustment of the mA and/or kV ac cording to patient size, Use of iterative reconstruction technique. FINDINGS: There is minimal left basilar atelectasis. The liver is normal in appearance. There are g allstones in the gallbladder. The gallbladder is within normal limits in size. The pancreas, spleen and adrenal glands are normal in appearance. There are bilateral renal cysts. The abdominal aorta is within normal limits in size. There are atherosclerotic calcifications in the major arteries of t he abdomen and pelvis. There are multiple loops of distended fluid and stool filled small bowel fernando uring up to 4.2 cm in diameter with adjacent edema. A transition point is not identified. There is a right hemicolectomy. There is diverticulosis of the colon with no evidence of diverticulitis. No free air in the abdomen or pelvis. There is minimal free fluid layering in the dependent pelvis. Th e bladder is minimally filled which limits the evaluation. There are degenerative changes in the spi ne. Impression: Nonspecific small bowel distension as described. The differential diagnosis includes il eus and small bowel obstruction. Colonic diverticulosis without diverticulitis. Minimal free fluid in the pelvis. Right hemicolectomy. Cholelithiasis as described. Atherosclerotic vascular disease. All CT scans are performed using dose optimization techniques as appropriate to the performed exam an d include at least one of the following: Automated exposure control, adjustment of the mA and/or kV according t o size, and the use of iterative reconstruction technique.
[2020-10-25] MEDS ORDERED: ZOFRAN 4 MG/2 ML IVP PRN (02:25)
[2020-10-25] MEDS ORDERED: TYLENOL PO PRN (02:25)
[2020-10-25] MEDS ORDERED: DILAUDID 1 MG/ML SYRINGE IVP PRN (02:25)
[2020-10-25] MEDS: D5%-NS-KCL 20 MEQ/L IV SOL 1,000 ML IV SCH ×2 (03:21→11:02)
[2020-10-25 04:24] LABS: ADENOVIRUS (PCR) NOT DETECTED (NOT DETECT); BORDETELLA PARAPERTUSSIS (PCR) NOT DETECTED (NOT DETECT); BORDETELLA PERTUSSIS (PCR) NOT DETECTED (NOT DETECT); CHLAMYDIA PNEUMONIAE (PCR) NOT DETECTED (NOT DETECT); CORONAVIRUS 229E (PCR) NOT DETECTED (NOT DETECT); CORONAVIRUS HKU1 (PCR) NOT DETECTED (NOT DETECT); CORONAVIRUS NL63 (PCR) NOT DETECTED (NOT DETECT); CORONAVIRUS OC43 (PCR) NOT DETECTED (NOT DETECT); HUMAN METAPNEUMOVIRUS (PCR) NOT DETECTED (NOT DETECT); HUMAN RHINOVIRUS/ENTEROV (PCR) NOT DETECTED (NOT DETECT); INFLUENZA B (PCR) NOT DETECTED (NOT DETECT); MYCOPLASMA PNEUMONIAE (PCR) NOT DETECTED (NOT DETECT); PARAINFLUENZA VIRUS 1 (PCR) NOT DETECTED (NOT DETECT); PARAINFLUENZA VIRUS 2 (PCR) NOT DETECTED (NOT DETECT); PARAINFLUENZA VIRUS 3 (PCR) NOT DETECTED (NOT DETECT); PARAINFLUENZA VIRUS 4 (PCR) NOT DETECTED (NOT DETECT); RESPIRATORY SYNCYTIAL V (PCR) NOT DETECTED (NOT DETECT); SARS_COV_2 (PCR) NOT DETECTED (NOT DETECT)
[2020-10-25 05:43] VITALS: TEMP 98.9
[2020-10-25 06:07] LABS: ALANINE AMINOTRANSFERASE 15.8 U/L (0-50); ALBUMIN 4.42 g/dL (3.5-5.0); ALKALINE PHOSPHATASE 110.4 U/L (56-119); ASPARTATE AMINO TRANSFERASE 21.3 U/L (17-59); BILIRUBIN,TOTAL 0.79 mg/dL (0.2-1.3); BLOOD UREA NITROGEN 23.9 mg/dL (9-20); CALCIUM 8.91 mg/dL (8.4-10.2); CARBON DIOXIDE 25.6 mmol/L (22-30.0); CHLORIDE 96.9 mmol/L (98-107); CREATININE 1.4 mg/dL (0.60-1.10); GLUCOSE 211.9 mg/dL (74-106); POTASSIUM 4.57 mmol/L (3.5-5.1); SODIUM 132.7 mmol/L (134.5-145); TOTAL PROTEIN 7.33 g/dL (6.3-8.2)
[2020-10-25 06:08] LABS: BASOPHILS % (AUTO) 0.4 % (0.0-3.0); EOSINOPHILS % (AUTO) 0.7 % (0.0-7.0); HEMATOCRIT 39.2 % (42.0-52.0); HEMOGLOBIN 12.6 g/dl (14.0-18.0); IMMATURE GRANULOCYTE % (AUTO) 0.2 % (0.0-5.0); LYMPHOCYTES # (AUTO) 0.3 K/uL (0.60-3.4); LYMPHOCYTES % (AUTO) 5.8 (10.0-50.0); MEAN CORPUSCULAR HEMOGLOBIN 28.6 pg (27.0-31.0); MEAN CORPUSCULAR HGB CONC 32.1 (31.8-35.4); MEAN CORPUSCULAR VOLUME 89.1 fl (80.0-94.0); MONOCYTES # (AUTO) 0.5 K/uL (0.4-2.0); MONOCYTES % (AUTO) 8.9 (0-10); NEUTROPHILS # (AUTO) 4.6 K/ul (2.0-6.9); PLATELET COUNT 184 10^3/uL (140-440); RDW COEFFICIENT OF VARIATION 17.3 % (11.6-14.8); WHITE BLOOD COUNT 5.48 K/ul (4.2-10.2)
--- NOTE | 2020-10-25 11:28 | PCM.PROG ---
Chief Complaint: Abdominal cramping and nausea. History of Present Illness: Admitted 10/25/20 04:56, this 85 year old white male presented to ER with a less than one day hx of abdominal cramping and nausea. Not vomiting, not sure when last BM was. 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 His oncologist is Dr. Chacko and patient is receiving keytruda, last dose about 2 weeeks ago. He has had several abdominal surgeries, last one about a year ago at [facility]. PCP is his nephew, Dr. Stewart. Review of Systems: Constitutional: Weakness, Fatigue and Loss of appetite Eyes: No symptoms Ears: No symptoms Nose: No symptoms Throat: No symptoms Mouth: No symptoms Respiratory: No symptoms Cardiovascular: No symptoms Gastrointestinal: Abdominal pain and Nausea Genitourinary: No symptoms Neurological: No symptoms Musculoskeletal: No symptoms Skin: No symptoms Immunology: No symptoms Hematology: No symptoms Endocrine: No symptoms Psychiatric: No symptoms Habits: Tobacco use Past Medical History: S[place]is cell, prostate, colon cancers. HTN. CAD. T2DM. Past Surgical History: Abdominal surgeries. CABG. Past Family History: Noncontributory. Past Social History: Came from home. No current tobacco or alcohol use. Physical Examination: Vitals: Temperature 98.9 F, Pulse 91, Respirations 17, Blood Pressure 198/77, SPO2 99 Body Measurements: Height 5 ft 10.5 in, Weight 79.5 kg, BMI 24.7-Normal HEENT WNL. Neck supple. Heart RRR without m. Lungs clear. Abdomen soft with increased BS. Generalized TTP without RT, mild guarding. Neuro intact. Ext intact. Skin WNL. Education: N/A Allergies Allergy/AdvReac Type Severity Reaction Status Date / Time No Known Allergies Allergy Verified 10/24/20 22:51 Medications: Medications Generic Name Dose Route Start Last Admin Trade Name Freq PRN Reason Stop Dose Admin Acetaminophen 650 mg 10/25/20 02:25 Acetaminophen 325 Mg Tablet PO Q4H PRN MIld pain Hydromorphone HCl 1 mg 10/25/20 02:25 Hydromorphone Hcl 1 Mg/Ml Syringe IVP Q4HR PRN Severe Pain Potassium Chloride/Dextrose/Sod Cl 1,000 mls @ 125 mls/hr 10/25/20 02:30 10/25/20 11:02 D5%-Ns-Kcl 20 Meq/L Iv Ximena IV 125 mls/hr .Q8H TINO Administration Ondansetron HCl 4 mg 10/25/20 02:25 Ondansetron Hcl/Pf 4 Mg/2 Ml Sdv IVP Q6H PRN Nausea / Vomiting Sodium Chloride 1 syr 10/25/20 00:31 0.9% Sodium Chloride 10 Ml Disp.Syrin IVF PRN PRN To flush IV Lab/Tests/Diagnostic Imaging: These should print with the note. Overall, labs unremarkable. CT of abdomen/pelvis revealed a partial SBO. Progress Note: ED physician determined patient needed hospitalized. His oncologist and surgeon are all at [facility] or [facility], no beds available last night. Patient admitted here for IVF and symptomatic treatment. He did not want an NG tube unless necessary. Remained stable, still with abdominal pain today, beds now available at [facility]. Dr. Guardado PA accepted the transfer. ASSESSMENT: Please see below. Partial small bowel obstruction. Recommendations/Plan: Transfer via EMS to [facility] in [place] [facility]LY [facility], [facility] Medical History (Updated 10/25/20 @ 06:22 by NATALIIA SIMMS) A-fib Cancer Coronary artery arteriosclerosis Diabetes High cholesterol Hypertension Family History (Updated 10/25/20 @ 05:50 by NATALIIA SIMMS) BROTHER Cancer Hypertension FATHER Cancer Hypertension Mother Hypertension SISTER Hypertension Cancer Social History (Updated 10/25/20 @ 05:50 by NATALIIA SIMMS) Smoking and tobacco status: Former smoker Smokeless tobacco user: chewing tobacco Alcohol intake: never Surgical History (Updated 10/25/20 @ 05:50 by NATALIIA SIMMS) S/P CABG x 4
== END 2020-10-25 13:25 | disposition short-term general hospital (02) | DRG 392 ==
LOC: ED 21:53 → MEDSURG A 10-25 04:56
PROVIDERS: ADMIT Internal Medicine Geriatric Medicine; ATTEND Emergency Medicine
DX: K56.609 Unspecified intestinal obstruction, unspecified as to partial versus complete obstruction; R11.0 Nausea; Z20.822 Contact with and (suspected) exposure to COVID-19; R10.9 Unspecified abdominal pain; C61 Malignant neoplasm of prostate; R63.0 Anorexia; R53.1 Weakness